=== PATIENT | male | born 1950 | race Caucasian/White ===

== ENCOUNTER → 2016-05-08 | Outpatient (CLI) | payer MEDICARE, OTHER ==
--- NOTE | 2016-05-16 08:37 | RSPPFT ---
DATE OF PROCEDURE: 05/08/16 COMMENTS: Spirometry shows FVC of 4.3 at 77% of predicted, FEV1 of 3.5 at 93%, FEV1/FVC ratio is normal. Flow is normal at FEF 25, FEF 50, FEF 25-75. There is no response after bronchodilator treatment. Lung volumes show residual volume is decreased. TLC is decreased. Diffusion capacity is normal. Flow volume loop indicates a normal pattern. IMPRESSION: 1. Normal spirometry. 2. No response to bronchodilator treatment. 3. Lung volumes are mildly decreased. 4. Diffusion capacity is normal.
== END ==
LOC: HRSP 12:09
PROVIDERS: ATTEND Internal Medicine Cardiovascular Disease
DX: R06.02 Shortness of breath (principal)
CPT/HCPCS: 94060; 94726; 94729

== ENCOUNTER → 2016-07-11 | Day surgery (SDC) | payer MEDICARE, OTHER ==
[~2016-07-11] MED LIST: ACETAMINOPHEN/HYDROcodone 325 MG/5 MG TAB ONE; BUPIVACAINE HCL PF 0.75% 30 ML VIAL ONE; LACTATED RINGER'S 1000 ML INJ 1,000 ML ONE; LIDOCAINE 1.5%/EPINEPHrine 1:200,000 PF SOLN 30 ML AMP NERV BLOCK ONE; MEPERIDINE HCL 25 MG/ML VIAL ONE; MIDAZOLAM HCL 5 MG/ML VIAL (1 ML) ONE; PROPOFOL 200 MG/20 ML AMP IV ONE; RESP: ALBUTEROL 2.5 MG/3 ML NEB (SCH) ONE; ceFAZolin 2 GM PREMIX 50 ML ONE
--- NOTE | 2016-07-12 17:14 | MP ---
cc: SANDRA ABEBE DATE OF SURGERY 07/11/16 PREOPERATIVE DIAGNOSIS 1. Right shoulder rotator cuff tear 2. Right shoulder impingement syndrome 3. Right shoulder labral tear. POSTOPERATIVE DIAGNOSES 1. Right shoulder rotator cuff tear 2. Right shoulder impingement syndrome 3. Right shoulder labral tear. PROCEDURE 1. Right shoulder arthroscopic rotator cuff repair 2. Right shoulder arthroscopic subacromial decompression 3. Right shoulder arthroscopic extensive debridement labral tear. SURGEON Dr. Horacio Abebe BUSINESS DEVELOPMENT AGENT YSABEL Johnson ANESTHESIA General with interscalene block. ESTIMATED BLOOD LOSS Less than 10 mL COMPLICATIONS None IMPLANTS USED Arthrex JUSTIFICATION FOR PROCEDURE This patient is a 65-year male with a history of progress right shoulder pain. In regards to condition, he has failed extensive conservative treatment. He was counseled as risks, benefits and alternatives to the above-named proposed surgical procedure. He did wish to proceed with surgery. PROCEDURE IN DETAIL A written consent obtained. The patient was identified by name. A scalene block anesthesia was administered to right upper extremity. The patient was taken to the operating room and general anesthesia was administered as well as 2 grams of IV Ancef. The patient was carefully turned to the left lateral decubitus position. A lateral arm was placed. All bony prominences and pressure points were well padded. The patient's neck was carefully monitored and kept neutral. An arthroscopic arm south was gently applied to right upper extremity with 10 pounds of traction placed. The right shoulder prepped and draped using Isopropyl alcohol, Hibiclens solution and DuraPrep solution. After a time-out was performed, a standard posterior and anterior glenohumeral arthroscope portal was established. Glenohumeral joint revealed extensive evidence of labral tearing along the anterior, superior and posterior portions. Biceps origin was intact. Minimal chondromalacia was noted. An arthroscopic shaver was introduced into anterior portal and extensive debridement of labrum was performed from the anterior portion to include the 3 o'clock position up to the superior 12 o'clock position and posterior nine o'clock position. There is evidence of high-grade tear rotator cuff tendon along the anterior leading edge of the supraspinatus which was also debrided from the glenohumeral joint. Attention was turned to the subacromial space where there was evidence of extensive bursitis with impingement. An arthroscopic shaver was introduced from anterior portal and a subacromial decompression was performed. The shaver was used to perform extensive bursectomy. An arthroscopic bur was used to perform an acromioplasty. The cautery device was used to release the coracoacromial ligament. The bur was used to decorticate the greater tuberosity in preparation for rotator cuff tendon repair. An Arthrex scorpion device was used to shuttle #2 fiber tape sutures in a horizontal mattress pattern through the anterior and posterior portions of the torn tendon. The sutures were then placed through the eyelet of an Arthrex 4.75 mm bio swivel lock anchor. A area relief pilot hole was created in the greater tuberosity and the anchor was then inserted after appropriate tensioning of sutures. The rotator cuff tear was probed after surgical repair noted to have good stability and fixation. At the conclusion of surgical procedure, the arthroscopic portals were closed with 3-0 Prolene sutures. Sterile dressing applied. The patient placed in sling and swath immobilizer. He tolerated the procedure well with no intraoperative complications noted. Earl Doll, physician surgical dental assistant certified, was present during the entire procedure to include patient positioning and the procedure itself. The medical necessity of a physician surgical dental assistant was indicated in this case due to the complexity of the procedure. He assisted with appropriate manipulation of the arm and also manipulation of the camera. He assisted with shuttling the sutures and also implantation of suture anchor for purposes of rotator cuff tendon repair. MD PAUL Church/ /9:44 AM /4:55 PM
== END | disposition home or self-care (01) ==
LOC: ESDC 06:35
PROVIDERS: ATTEND Orthopaedic Surgery Sports Medicine
DX: M75.101 Unspecified rotator cuff tear or rupture of right shoulder, not specified as traumatic (principal); M75.41 Impingement syndrome of right shoulder; S43.491A Other sprain of right shoulder joint, initial encounter
CPT/HCPCS: 01630; 01991; 29823; 29826; 29827; 64417; C1713; J0690; J2175; J2250; J7120; J7613

== ENCOUNTER 2017-09-08 05:19 | Observation (INO) ==
[2017-09-08] MEDS ORDERED: Chlorhexidine 4% Topical 120 APPLIC/120 ML Bottle TOPICAL SCH (06:00)
[2017-09-08] MEDS ORDERED: Insulin NovoLIN Regular Correctional Sugar Inj SQ SCH (06:00)
[2017-09-08] MEDS ORDERED: Chlorhexidine Gluconate 2% 1 Pack (2 Cloths) TOPICAL SCH (06:00)
[2017-09-08] MEDS ORDERED: Metoprolol Tartrate 25 MG Tablet PO SCH (06:00)
[2017-09-08] MEDS ORDERED: Sodium Chlor 0.9% Inj 500 ML IV.SIG SCH (06:00)
[2017-09-08] MEDS ORDERED: ceFAZolin 2 GM Premix Inj 2 GM/50 ML PIGGYBACK IV.SIG SCH (06:00)
[2017-09-08] MEDS ORDERED: Propofol Inj 500 MG/50 ML Vial ONE ×2 (06:43→07:17)
[2017-09-08 06:48] LABS: Baso % (Auto) 0.6 % (0.0-2.0); Eos # (Auto) 0.1 th/mm3 (0.0-0.4); Eos % (Auto) 1.4 % (0.0-4.0); Hematocrit 35.2 % (39.0-51.0); Hemoglobin 11.7 gm/dL (13.0-17.0); Lymph # (Auto) 0.6 th/mm3 (1.0-4.8); Lymph % (Auto) 8.9 % (9.0-44.0); Mean Corpuscular HGB Conc 33.3 % (32.0-36.0); Mean Corpuscular Hemoglobin 27.6 pg (27.0-34.0); Mean Corpuscular Volume 82.8 fL (80.0-100.0); Mono # (Auto) 0.6 th/mm3 (0.0-0.9); Mono % (Auto) 8.6 % (0.0-8.0); Neut # (Auto) 5.4 th/mm3 (1.8-7.7); Neut % (Auto) 80.5 % (16.0-70.0); Platelet Count 279 th/mm3 (150-450); Red Blood Count 4.25 mil/mm3 (4.50-5.90); Red Cell Distribution Width 14.5 % (11.6-17.2); White Blood Count 6.7 th/mm3 (4.0-11.0)
[2017-09-08] MEDS ORDERED: Ketamine Inj 50 MG/5 ML Syringe IV.PUSH ONE (07:17)
[2017-09-08] MEDS ORDERED: HYDROmorphone PF Inj 2 MG/ML Vial ONE ×2 (07:17→15:50)
[2017-09-08] MEDS ORDERED: Sodium Chlor 0.9% Inj 250 ML ONE (07:51)
[2017-09-08] MEDS ORDERED: Lidocaine PF 1% Inj 5 ML Syringe INFILTRATN ONE (10:17)
[2017-09-08] MEDS ORDERED: Glycopyrrolate Inj 1 MG/5 ML Syringe IV.PUSH ONE (10:17)
[2017-09-08] MEDS ORDERED: Sodium Chlor 0.9% Inj 500 ML IV.SIG ONE (10:17)
[2017-09-08] MEDS ORDERED: Sodium Chlor 0.9% Inj 250 ML IV.SIG ONE (10:17)
[2017-09-08] MEDS ORDERED: Post-op Orders (for Pharmacy) OTHER STA (13:10)
[2017-09-08] MEDS ORDERED: Bisacodyl 10 MG Supp RECTAL PRN (13:10)
[2017-09-08] MEDS ORDERED: Morphine Inj 4 MG/ML Vial IV.PUSH PRN (13:10)
[2017-09-08] MEDS ORDERED: Acetaminophen 325 MG Tablet PO PRN (13:10)
[2017-09-08] MEDS ORDERED: Benzocaine/Menthol 15 MG/3.6 MG SF Lozenge BUCCAL PRN (13:15)
--- NOTE | 2017-09-08 13:18 | P.BOP ---
Date of procedure: 09/08/17 Procedure: C5-C6, C6-C7 anterior cervical discectomy and instrumented fusion Iliac crest autograft Placement of allograft Implants: MicroEnsureuy ACDF plates and screws 4-Web interbody cages Anesthesia: GETA Surgeon: Rina Marie MD Pathology: none sent Condition: stable Disposition: PACU
[2017-09-08] MEDS ORDERED: fentaNYL Citrate Inj 100 MCG/2 ML Ampul ONE ×2 (13:27)
[2017-09-08] MEDS ORDERED: *Meperidine Inj 25 MG/ML Vial PERIprocedural Use ONLY ONE (14:37)
--- NOTE | 2017-09-08 14:47 | XR ---
EXAM DATE: 09/08/2017 2:17 PM EDT AGE/SEX: 67 years / Male INDICATIONS: C5-C6,C6-C7 anterior cervical fusion. CLINICAL DATA: This is the patient's initial encounter. Patient reports that signs and symptoms have been present for 1 day and indicates a pain score of 0/10. MEDICAL/SURGICAL HISTORY: Non-responsive. Non-responsive. COMPARISON: [facility], MR CERVICAL SPINE W/O CONTRAST, 04/30/2017. . FINDINGS: Crosstable lateral view of the cervical spine demonstrate a radiopaque marker at the C5-6 disc space. Subsequent AP and crosstable lateral view demonstrates intradiscal cage and anterior plate and screw fixation at C5-6 and C6-7. Hardware appears grossly well-positioned. Vertebral body heights are sylvia sly intact. CONCLUSION: 1. C5-6-7 anterior fusion, as above. Electronically signed by: Kevin Mcclure MD 09/08/2017 2:45 PM EDT
[2017-09-08] MEDS ORDERED: *morphine SULFATE 10 MG/ML PERIprocedure ONLY ONE ×2 (15:13→16:04)
[2017-09-08] MEDS: Morphine Sulfate 15 MG IR Tablet PO PRN (20:48)
[2017-09-08] MEDS: Senna/Docusate Sodium 8.6/50 MG Tablet PO SCH (20:48)
[2017-09-09 01:13] VITALS: RESP 20; TEMP 97.5
[2017-09-09] MEDS: Morphine Sulfate 15 MG IR Tablet PO PRN (02:47)
[2017-09-09 05:23] VITALS: BP 175/84; PULSE 68; O2SAT 97
--- NOTE | 2017-09-09 07:25 | P.PNOP ---
Subjective Interval history: Patient doing well this morning. Sitting upright in bedside chair. States he has been swallowing liquids and soft foods without significant difficulty. Complains of mild neck pain. Reports left arm pain and numbness and tingling improved Physical Exam Vital signs: Vital Signs 09/08/17 13:20 09/08/17 13:30 09/08/17 13:45 Temperature 98.2 F Pulse Rate 74 76 84 Respiratory Rate 19 15 15 Blood Pressure 118/58 L 131/64 146/70 H Pulse Oximetry 98 99 100 09/08/17 14:00 09/08/17 14:09 09/08/17 15:00 Temperature Pulse Rate 82 84 Respiratory Rate 15 16 Blood Pressure 151/72 H 154/71 H Pulse Oximetry 96 97 99 09/08/17 16:00 09/08/17 16:30 09/08/17 16:55 Temperature 97.4 F L Pulse Rate 80 74 Respiratory Rate 17 15 Blood Pressure 159/73 H 141/79 H Pulse Oximetry 99 97 98 09/08/17 20:00 09/09/17 00:00 09/09/17 04:00 Temperature 98 F 97.5 F L 97.5 F L Pulse Rate 94 H 82 68 Respiratory Rate 24 20 20 Blood Pressure 138/78 162/77 H 175/84 H Pulse Oximetry 97 98 97 Intake & Output 09/08/17 09/09/17 09/09/17 18:59 06:59 18:59 Intake Total 3125 / 3125 100 / 100 Output Total 1025 / 1025 1550 / 1550 Balance 2100 / 2100 -1450 / -1450 Weight 116.8 kg Intake: IV 100 / 100 100 / 100 Ancef Inj 1,000 MG In NS Inj 100 / 100 100 / 100 100 ML @ 200 mls/hr IV.SIG Q8H [facility] Rx#:[id number] Oral 25 / 25 Anesthesia Amount 3000 / 3000 Output: Estimated Blood Loss 75 / 75 Urine Amount (Catheter) 950 / 950 1550 / 1550 Indwelling Urethral Catheter 950 / 950 1550 / 1550 Narrative: Awake, alert, no acute distress. Sitting in bedside chair C-collar in place Dressing removed over anterior neck and Rocael pulled. Small Steri-Strips applied and new dressing. No significant swelling or hematoma appreciable. Bilateral upper extremities: 5 out of 5 strength throughout deltoid, biceps, triceps, finger flexion and extension along with wrist flexion and extension. Sensation appears intact. Radial pulse palpable. - Urinary Catheter Management Indwelling Urethral Catheter Cath placed during this visit: yes, but has since been removed by the nurse Reason for continuing: Not indwelling catheter Insertion date: 09/08/17 Removal date: 09/09/17 Removal time: 05:40 Results - Labs CBC & Chem 7: 09/08/17 06:28 Laboratory Results - last 24 hr 09/08/17 15:56 POC Glucose 186 H - Imaging Impressions Cervical Spine X-Ray 09/08/17 00:00 CONCLUSION: 1. C5-6-7 anterior fusion, as above. Assessment and Plan - Assessment and Plan 67-year-old male, POD#1 s/p C5-C7 ACDF, doing well 1. Dressing changed and drain pulled. 2. C-collar to remain in place except for hygiene. 3. Plan for discharge home today with scheduled follow-up in approximately 2 weeks.
[2017-09-09] MEDS ORDERED: Multivitamin/Minerals Therapeutic Tablet PO SCH (09:00)
[2017-09-09] MEDS: Senna/Docusate Sodium 8.6/50 MG Tablet PO SCH (09:17)
--- NOTE | 2017-09-18 07:54 | P.OP ---
Date of procedure: 09/08/17 Procedure: C5-C6, C6-C7 anterior cervical discectomy and instrumented fusion Iliac crest autograft Placement of allograft Implants: Depuy ACDF plates and screws 4-Web interbody cages Anesthesia: GETA Surgeon: Rina Marie MD Estimated blood loss (mL): 50 Pathology: none sent Operation and Findings: Indications for procedure: Patient is a 67-year-old gentleman who presented to my office with signs and symptoms consistent with cervical radiculopathy and associated cervical stenosis at C5-6 and C6-7. Options of management including nonoperative versus operative care were discussed with the patient. Discussion of surgical intervention the form of anterior cervical decompression and instrumented fusion C5-C7 with possible iliac crest autograft, possible allograft. Risks of surgery, possible benefits and alternative treatment options were discussed with the patient. At this time the patient wished to proceed with the above-mentioned procedure. Description of procedure: Patient was brought back to the operating room where general anesthesia then ensued. Neuro monitoring leads were placed along with a urinary catheter. The patient was carefully positioned supine on operating room table with all bony prominences well padded. The arms were taped distally to allow appropriate imaging. Patient was prepped and draped in standard sterile fashion. C-arm views were used to localize site for incision. Preoperative antibiotics were given within 1 hour of incision. A timeout was performed to identify the correct patient, sides, sites and procedures to be performed. Approximately 5 cm transverse incision was made in the lower skin crease on the left side. A standard Wolfe-Gaines approach was performed with dissection carried out medial to the sternocleidomastoid and medial to the carotid sheath. Blunt finger sweep allow for palpation down to the anterior aspect of the spine. An appendiceal retractor was placed. The prevertebral fascia was split longitudinally. A pre-bent needle was then inserted into the C5-6 disc space and confirmed to be at the appropriate level based on C-arm guidance. The longus coli was then mobilized off the midline over the bodies of C5, C6 and C7 and a self-retaining retractor was then placed. Once the retractor was in place, Cayuc[place] pins were then placed into the body of C5 and C6. Distraction was carried out. Discectomy was performed at C5-6 with combination of curettes and pituitary rongeurs and a high-speed bur. Backside decompression was performed with high-speed bur such that the medial aspect of the uncinate and all osteophytic material were removed. This was performed until all nuclear and cartilaginous material was removed from each endplate and compressive osteophytes were removed. The PLL was then removed with the use of curved curettes and Kerrisons. This was performed out laterally towards the foramen until a curved curette was able to be passed out the foramen without difficulty. The underlying dura was found to be free of any compression at this time. Copious irrigation was performed and hemostasis achieved with thrombostatic agent. Cages were sized up to a size 8 at the C5-6 levels. At this time, I turned my attention to obtaining iliac crest autograft. The left iliac crest had been prepped along with the neck prior to the start of procedure. A small stab incision was made with an 11 blade over the anterior iliac crest approximately 2 cm posterior to the ASIS. The bone harvesting trocar was then impacted into the iliac crest. Once the harvesting trocar was passed the cortical bone and into cancellus bone, the center sleeve was removed and the trocar advanced and turned and advanced to allow for course of bone to be harvested. This was then removed and the cancellus bone core removed from the trocar. The trocar was then reinserted several times within the same cortical window but redirected in different directions to allow for cancellus bone course to be removed. This was performed a total of 4 times. The cage was filled with autograft mixed with allograft. This was then impacted into the disc space and distraction was released. The [place]os pin was removed from the C5 level and placed into the C7 level. Distraction was then performed across the C6-7 disc space. Discectomy was then carried out at the C6 -7 level with pituitary rongeurs, curettes and high-speed bur. Again backside decompression was performed with high-speed bur such that the medial aspect of the uncinate and all osteophytic material were removed. The PLL was then removed with the use of Curettes and Kerrisons. Again this was carried out laterally to ensure the foramen were free of compression. The underlying dura and foramen appeared to be free of any compression and copious irrigation was performed. Hemostasis was again achieved. The cage was then sized up again to a size 8 at the C6-7 level. The cage was packed on the back table with autograft and allograft. This was then impacted into the disc space and distraction was let down and Cay[place]os pins removed. Both cages were found to be highly stable and well positioned on C-arm. Neuro monitoring was without any adverse signal changes at this time. An anterior plate was then sized and placed anteriorly over the C5, C6, and C7 vertebral bodies. Screws were then placed bilaterally into C5, C6 and C7. All screws obtained good purchase. The screws were locked down and then final tightened. Final radiographs demonstrated hardware was in appropriate position on both AP and lateral radiographs with good protestant of cervical lordosis and disc space height. Copious irrigation was performed. Hemostasis was achieved with proper static agent and bipolar electrocautery. A Rocael drain was then placed into the incision. The platysmal layer was reapproximated with running 2-0 Vicryl suture. The subcutaneous tissue was closed with 3-0 Vicryl and the subcuticular layer closed with 4-0 Monocryl suture. Mastisol and Steri- Strips were then applied. Sterile dressings were placed. A C collar was then placed. Patient was then awoken from general anesthesia without complication. It should be noted that the patient remained hemodynamically stable throughout the procedure without any adverse neural monitoring signal changes.
== END 2017-09-09 10:18 | disposition home or self-care (01) ==
LOC: HSDI 05:19 → N06 05:19 → HSDC 05:19 → N06 17:13
PROVIDERS: ADMIT Orthopaedic Surgery Orthopaedic Surgery of the Spine; ATTEND Orthopaedic Surgery Orthopaedic Surgery of the Spine